=== PATIENT | female | born 2000 | race Caucasian/White ===

== ENCOUNTER 2020-11-10 06:25 | Day surgery (SDC) | payer OTHER, MEDICAID ==
[2020-11-04 17:28] VITALS: BMI 26.0
[~2020-11-10 06:25] MED LIST: DEXAMETHASONE SOD PHOSPHATE 4 MG/ML 1 ML VIAL IV PRN; FAMOTIDINE 20 MG/2 ML VIAL IV PRN; ONDANSETRON 4 MG/2 ML VIAL IVP PRN
[2020-11-10] MEDS ORDERED: LACTATED RINGERS 1,000 ML IV SCH (06:46)
[2020-11-10] MEDS ORDERED: LIDOCAINE 1% (10MG/ML) FOR IV START INTRADERMA PRN (06:46)
[2020-11-10] MEDS ORDERED: HYDROmorphone 0.5 MG/0.5 ML SYRINGE IVP PRN (07:00)
[2020-11-10 07:04] VITALS: RESP 16
[2020-11-10] MEDS ORDERED: fentaNYL (PF) 50 MCG/ML 2 ML AMP ONE (07:26)
[2020-11-10] MEDS ORDERED: SUCCINYLCHOLINE CHLORIDE 100 MG/5 ML SYR IV ONE (07:26)
[2020-11-10] MEDS ORDERED: DEXAMETHASONE SOD PHOSPHATE 10 MG/ML 1 ML VIAL ONE (07:26)
[2020-11-10] MEDS ORDERED: PROPOFOL 10 MG/ML 20 ML VIAL IV ONE (07:26)
[2020-11-10] MEDS ORDERED: MIDAZOLAM 2 MG/2 ML VIAL ONE (07:26)
[2020-11-10] MEDS ORDERED: LIDOCAINE 1% INJ 10MG/ML (20 ML MDV) ONE (07:26)
[2020-11-10] MEDS ORDERED: LIDOCAINE 1%-EPI 1:100,000 20 ML VIAL SQ ONE (07:52)
[2020-11-10] MEDS ORDERED: BUPIVACAINE (PF) 0.25% 30 ML VIAL SQ ONE (07:53)
--- NOTE | 2020-11-10 08:35 | P.OP ---
Date of Procedure: 11/10/20 Preoperative Diagnosis: Chronic hypertrophic adenotonsillitis with cryptitis Postoperative Diagnosis: Same Procedure(s) Performed: Modified Coblation adenotonsillectomy Anesthesia: CAROLYNA Surgeon: Jose Murphy Estimated Blood Loss (ml): 0 Pathology: other (Tonsils) Condition: stable Disposition: PACU Indications for Procedure: This patient is a 20-year-old white female who presents with chronic tonsillitis and tonsillar cryptitis. This is been going on for many years. She gets halitosis and an exuberant amount of tonsil stones. She suffered for years with halitosis and repetitive production of tonsil stones which have become problematic and is affecting her quality of life. She is tried multiple ways to get rid of the tonsil stones with success. She is requesting tonsillectomy adenoidectomy Operative Findings: Patient had cryptic tonsillitis with an exuberant amount of tonsil stones. The adenoids were also large and obstructive causing airway blockage in the nasopharynx. Description of Procedure: Prior to surgery all risks, benefits, and alternative therapies were discussed in detail. Risks of bleeding, infection, need for secondary surgery, airway problems, anesthetic complications, etc. etc. were discussed in detail. Consent was obtained and all questions were answered. OPERATIVE PROCEDURE: This patient was taken to the operative room and placed in the supine position. A functioning IV line was in placed and the patient was monitored throughout the entire case by the department of anesthesia. The patient underwent general anesthetic with intubation and tube was secured. A McIvor mouth gag was placed into the patients mouth with care to avoid any trauma to the lips, teeth, gums or tongue. Mouth was opened and tongue was depressed. The tonsils were grasped with an Allis forceps and brought medially bilaterally. A subcapsular dissection was performed utilizing an Evac-70 handpiece with an Arthrotec setting of 7. The tonsils were removed without incident bilaterally and the tonsillar fossae were inspected and bleeding was nonexistent and stopped spontaneously with Coblation. A Marcaine and lidocaine mixture was injected into the peritonsillar area for anesthesia postoperatively. After the tonsillar fossae were reinspected and no bleeding was seen attention was then paid to the nasopharynx where a red rubber catheter was placed into the nose and out the mouth and used to retract the soft palate. With use of indirect mirror examination and the Coblation hand wand, the adenoid tissue was removed in that fashion again utilizing an Evac-70 handpiece with Arthrotec setting of 7. The adenoid tissues were removed and fulgurated. The patient tolerated this procedure well. The nasopharynx shows no signs of any bleeding. McIvor mouth gag and the red rubber catheter were removed. The stomach was suctioned and the patient was taken to postanesthesia recovery in excellent condition having tolerated this procedure well. The patient will follow up in the office in one week as scheduled.
[2020-11-10 08:41] VITALS: TEMP 97.6
[2020-11-10] MEDS ORDERED: ONDANSETRON 4 MG/2 ML VIAL ONE (09:58)
[2020-11-10 10:18] VITALS: BP 117/83; PULSE 96
== END 2020-11-10 11:21 | disposition home or self-care (01) ==
LOC: OR 06:25
PROVIDERS: ATTEND Otolaryngology
DX: J35.03 Chronic tonsillitis and adenoiditis (principal); J35.8 Other chronic diseases of tonsils and adenoids
CPT/HCPCS: 42821; 81025; 88304; J2250; J1100 ×2; J2405; J0690; J2001; J3010; J0330; J2704; J1170

== ENCOUNTER → 2021-02-01 | Outpatient (CLI) | payer OTHER, MEDICAID ==
--- NOTE | 2021-02-01 11:33 | US ---
EXAMINATION TYPE: US thyroid st tissue head/neck DATE OF EXAM: 02/01/2021 COMPARISON: NONE CLINICAL HISTORY: R22.1 Mass of neck. Pt states palpable lump right lateral neck x 4 months, has not changed in size since pt noticed it Right lateral neck at palpable site there is a mixed area= 0.9 x 0.3 x 0.6 cm, appears subcutaneous . Attempted to call Dr's office at time o exam, no answer IMPRESSION: Subcutaneous hypoechoic lesion is nonspecific. Sebaceous cyst or microabscess can be considered. This does not not appear typical for a lymph node.
== END | disposition home or self-care (01) ==
LOC: RADUSWWP 10:39
PROVIDERS: ATTEND Family Medicine
DX: L98.9 Disorder of the skin and subcutaneous tissue, unspecified (principal)
CPT/HCPCS: 76536

== ENCOUNTER → 2024-02-26 | Outpatient (CLI) | payer BC ==
--- NOTE | 2024-02-26 16:31 | US ---
EXAMINATION TYPE: US transvaginal DATE OF EXAM: 02/26/2024 COMPARISON: NONE CLINICAL INDICATION: Female, 23 years old with history of N92.1 EXCESSIVE AND FREQUENT MENSTRUATION W ITH IRR; Irregular menses per patient. TECHNIQUE: Transvaginal (TV). Transvaginal sonographic images of the pelvis were acquired. Date of LMP: 02/12/2024, G0 EXAM MEASUREMENTS: Uterus: 6.0 x 3.3 x 3.0 cm Endometrial Stripe: 0.3 cm Right Ovary: 3.2 x 1.9 x 1.9 cm Left Ovary: 2.9 x 1.7 x 2.1 cm 1. Uterus: Anteverted No abnormality identified at time of scan 2. Endometrium: No abnormality identified at time of scan 3. Right Ovary: Follicles seen 4. Left Ovary: Follicles seen 5. Bilateral Adnexa: No abnormality identified at time of scan 6. Posterior cul-de-sac: No free fluid 7. Cervix- No abnormality identified at time of scan IMPRESSION: Unremarkable pelvic ultrasound. Normal endometrial thickness.
== END | disposition home or self-care (01) ==
LOC: RADUSWWP 15:36
PROVIDERS: ATTEND Family Medicine
DX: N92.1 Excessive and frequent menstruation with irregular cycle (principal)
CPT/HCPCS: 76830